=== PATIENT | male | born 1970 | race African-American/Black ===

== ENCOUNTER 2018-05-25 02:32 | Inpatient (IN) | payer MEDICAID, OTHER ==
[~2018-05-25] VITALS: Ht 188 cm; Wt 77.6 kg
[2018-05-25] MEDS ORDERED: MORPHINE SULFATE 4 MG/ML CPJ (NOT FOR IM USE) IV ONE (07:30)
[2018-05-25 09:14] LABS: BASOPHILS % 0.9 % (0.0-2.0); EOSINOPHILS % 4.4 % (0.0-5.0); HEMATOCRIT. 41.7 % (42.0-52.0); LYMPHOCYTES % 34.6 % (20.0-50.0); MEAN CORPUSCULAR HEMOGLOBIN 34.3 pg (28.0-32.0); MEAN CORPUSCULAR VOLUME 101.9 fL (80.0-94.0); MONOCYTES % 11.1 % (2.0-8.0); PLATELET 186 x1000/uL (130-400); RED BLOOD CELL COUNT 4.09 mill/uL (4.7-6.1); RED CELL DISTRIBUTION WIDTH 13.8 % (11.6-14.6)
[2018-05-25 09:17] LABS: CHLORIDE 109 mEq/L (98-107)
[2018-05-25] MEDS ORDERED: RIVAROXABAN 15 MG TABLET PO SCH (16:00)
[2018-05-25 20:33] VITALS: BP 126/86
[2018-05-25 20:40] VITALS: BP 126/86
[2018-05-25] MEDS ORDERED: ACETAMINOPHEN 325MG TABLET PO PRN (21:00)
[2018-05-25] MEDS ORDERED: LORAZEPAM 2MG/ML CPJ IV PRN (21:00)
[2018-05-25] MEDS ORDERED: CLONIDINE 0.1MG TABLET PO PRN (21:00)
[2018-05-25] MEDS: MORPHINE SULFATE 4 MG/ML CPJ (NOT FOR IM USE) IV PRN (23:03)
[2018-05-25 23:29] LABS: INR 1.1; PROTHROMBIN TIME 11.3 sec (9.1-11.1)
[2018-05-26 00:23] VITALS: BP 126/74
[2018-05-26 04:00] VITALS: BP 144/95
[2018-05-26] MEDS: ENOXAPARIN 80MG/0.8ML SYR SUBCUT SCH ×2 (06:28→17:17)
[2018-05-26 07:32] LABS: BASOPHILS % 1.2 % (0.0-2.0); EOSINOPHILS % 5.3 % (0.0-5.0); HEMATOCRIT. 44.9 % (42.0-52.0); HEMOGLOBIN. 15.2 g/dL (14.0-18.0); LYMPHOCYTES % 40.2 % (20.0-50.0); MEAN CORPUSCULAR HEMOGLOBIN 34.6 pg (28.0-32.0); MEAN CORPUSCULAR VOLUME 102.4 fL (80.0-94.0); MEAN PLATELET VOLUME 8.2 fl (7.4-10.4); MONOCYTES % 10.7 % (2.0-8.0); NEUTROPHILS % 42.6 % (40.0-76.0); PLATELET 197 x1000/uL (130-400); RED BLOOD CELL COUNT 4.39 mill/uL (4.7-6.1); RED CELL DISTRIBUTION WIDTH 13.4 % (11.6-14.6)
[2018-05-26] MEDS ORDERED: RIVAROXABAN 15 MG TABLET PO SCH ×2 (07:50→09:00)
[2018-05-26 08:13] LABS: CHLORIDE 106 mEq/L (98-107)
[2018-05-26 08:52] VITALS: BP 136/74
[2018-05-26] MEDS ORDERED: IOHEXOL-350 100 ML BOTTLE ONE (10:12)
[2018-05-26 12:20] VITALS: BP 129/80
[2018-05-26] MEDS: AMLODIPINE 2.5MG TABLET PO SCH ×2 (16:04→20:49)
[2018-05-26] MEDS: MORPHINE SULFATE 4 MG/ML CPJ (NOT FOR IM USE) IV PRN (16:13)
[2018-05-26 16:33] VITALS: BP 132/82
[2018-05-26 19:51] VITALS: BP 128/82
[2018-05-27] MEDS: ENOXAPARIN 80MG/0.8ML SYR SUBCUT SCH (05:48)
[2018-05-27 07:35] LABS: BASOPHILS % 0.9 % (0.0-2.0); EOSINOPHILS % 5.2 % (0.0-5.0); HEMATOCRIT. 46.4 % (42.0-52.0); HEMOGLOBIN. 15.5 g/dL (14.0-18.0); LYMPHOCYTES % 39.6 % (20.0-50.0); MEAN CORPUSCULAR HEMOGLOBIN 34.2 pg (28.0-32.0); MEAN CORPUSCULAR VOLUME 102.4 fL (80.0-94.0); MEAN PLATELET VOLUME 8.5 fl (7.4-10.4); MONOCYTES % 13.5 % (2.0-8.0); NEUTROPHILS % 40.8 % (40.0-76.0); PLATELET 216 x1000/uL (130-400); RED BLOOD CELL COUNT 4.53 mill/uL (4.7-6.1); RED CELL DISTRIBUTION WIDTH 13.7 % (11.6-14.6)
[2018-05-27 07:40] VITALS: BP 121/76
[2018-05-27] MEDS: AMLODIPINE 2.5MG TABLET PO SCH ×2 (08:19→08:25)
[2018-05-27] MEDS: MORPHINE SULFATE 4 MG/ML CPJ (NOT FOR IM USE) IV PRN (08:19)
[2018-05-27 08:38] LABS: CHLORIDE 106 mEq/L (98-107)
[2018-05-27 12:00] VITALS: BP 121/76
[2018-06-16] MEDS ORDERED: RIVAROXABAN 20 MG TABLET PO SCH (17:00)
== END 2018-05-27 13:10 | disposition home or self-care (01) | DRG 197 ==
LOC: ER 03:11 → EDSEX 03:11 → EDBD 03:11 → EDBEDREQ 09:36 → ENRESERV 17:31 → 6WST 18:30 → ER 18:30
PROVIDERS: ADMIT Internal Medicine; ATTEND Internal Medicine
DX: I82.512 Chronic embolism and thrombosis of left femoral vein (principal); E87.8 Other disorders of electrolyte and fluid balance, not elsewhere classified; I10 Essential (primary) hypertension; I82.532 Chronic embolism and thrombosis of left popliteal vein; T45.516A Underdosing of anticoagulants, initial encounter; Y92.89 Other specified places as the place of occurrence of the external cause; Z91.14 Patient's other noncompliance with medication regimen
CPT/HCPCS: 36415; 71045; 71275; 80048; 83735; 83880; 84484; 93005; 93306; 93971; J1650; J2270; Q9967

== ENCOUNTER 2018-05-30 23:01 | Emergency (ER) | payer MEDICAID ==
[~2018-05-30] VITALS: Ht 190.5 cm; Wt 89.0 kg
[2018-05-31 04:29] LABS: BASOPHILS % 1.9 % (0.0-2.0); EOSINOPHILS % 4.2 % (0.0-5.0); HEMATOCRIT. 38.3 % (42.0-52.0); LYMPHOCYTES % 31.2 % (20.0-50.0); MEAN CORPUSCULAR VOLUME 102.9 fL (80.0-94.0); MEAN PLATELET VOLUME 8.2 fl (7.4-10.4); MONOCYTES % 12.7 % (2.0-8.0); PLATELET 197 x1000/uL (130-400); RED BLOOD CELL COUNT 3.72 mill/uL (4.7-6.1); RED CELL DISTRIBUTION WIDTH 13.7 % (11.6-14.6)
[2018-05-31 04:36] LABS: CHLORIDE 108 mEq/L (98-107)
[2018-05-31 04:37] LABS: PARTIAL THROMBOPLASTIN TIME 23.1 sec (23.4-31.0); PROTHROMBIN TIME 10.1 sec (9.1-11.1)
[2018-05-31 06:19] VITALS: BP 116/80
== END 2018-05-31 06:45 | disposition home or self-care (01) ==
LOC: ER 23:01
DX: I82.403 Acute embolism and thrombosis of unspecified deep veins of lower extremity, bilateral (principal); F17.200 Nicotine dependence, unspecified, uncomplicated; Z86.718 Personal history of other venous thrombosis and embolism
CPT/HCPCS: 36415; 71045; 80053; 85025; 85610; 85730; 86850; 86900; 86901; 93005; 93970; 99284; 99406; Z7610

== ENCOUNTER 2018-06-04 03:23 | Emergency (ER) | payer MEDICAID ==
[~2018-06-04] VITALS: Ht 190.5 cm; Wt 89.0 kg
[2018-06-04] MEDS ORDERED: KETOROLAC 60MG/2ML VIAL IM ONE (08:00)
[2018-06-04 10:41] VITALS: BP 122/82
== END 2018-06-04 10:43 | disposition home or self-care (01) ==
LOC: ER 03:23
DX: I82.502 Chronic embolism and thrombosis of unspecified deep veins of left lower extremity (principal); F17.200 Nicotine dependence, unspecified, uncomplicated; Z98.890 Other specified postprocedural states; Z91.14 Patient's other noncompliance with medication regimen
CPT/HCPCS: 93971; 96372; 99284; J1885

== ENCOUNTER 2018-06-05 02:08 | Emergency (ER) | payer MEDICAID ==
[~2018-06-05] VITALS: Ht 190.5 cm; Wt 89.0 kg
[2018-06-05 05:55] LABS: BASOPHILS % 1.2 % (0.0-2.0); EOSINOPHILS % 4.7 % (0.0-5.0); HEMATOCRIT. 40.1 % (42.0-52.0); HEMOGLOBIN. 13.6 g/dL (14.0-18.0); LYMPHOCYTES % 28.7 % (20.0-50.0); MEAN CORPUSCULAR HEMOGLOBIN 34.8 pg (28.0-32.0); MEAN CORPUSCULAR VOLUME 102.6 fL (80.0-94.0); MONOCYTES % 11.6 % (2.0-8.0); NEUTROPHILS % 53.8 % (40.0-76.0); PLATELET 194 x1000/uL (130-400); RED BLOOD CELL COUNT 3.91 mill/uL (4.7-6.1); RED CELL DISTRIBUTION WIDTH 13.5 % (11.6-14.6)
[2018-06-05 06:00] LABS: CHLORIDE 109 mEq/L (98-107)
[2018-06-05 06:01] LABS: INR 1.1; PARTIAL THROMBOPLASTIN TIME 25.2 sec (23.4-31.0); PROTHROMBIN TIME 10.7 sec (9.1-11.1)
[2018-06-05 08:36] VITALS: BP 132/88
== END 2018-06-05 08:45 | disposition home or self-care (01) ==
LOC: ER 02:08
DX: R07.89 Other chest pain (principal); R73.03 Prediabetes; Z86.718 Personal history of other venous thrombosis and embolism
CPT/HCPCS: 36415; 71045; 83880; 84484; 93005; 99284

== ENCOUNTER 2018-06-11 23:32 | Emergency (ER) | payer MEDICAID ==
[~2018-06-11] VITALS: Ht 190.5 cm; Wt 89.5 kg
[2018-06-12 06:03] VITALS: BP 111/76
== END 2018-06-12 06:04 | disposition home or self-care (01) ==
LOC: ER 23:32
DX: M25.512 Pain in left shoulder (principal)
CPT/HCPCS: 73030; 99283

== ENCOUNTER 2018-07-09 23:10 | Inpatient (IN) | payer OTHER, MEDICAID ==
[~2018-07-09] VITALS: Ht 190.5 cm; Wt 78.9 kg
[2018-07-10 05:36] LABS: BASOPHILS % 0.8 % (0.0-2.0); EOSINOPHILS % 4.7 % (0.0-5.0); HEMATOCRIT. 42.1 % (42.0-52.0); HEMOGLOBIN. 14.2 g/dL (14.0-18.0); LYMPHOCYTES % 29.9 % (20.0-50.0); MEAN CORPUSCULAR HEMOGLOBIN 34.6 pg (28.0-32.0); MEAN CORPUSCULAR VOLUME 102.4 fL (80.0-94.0); MEAN PLATELET VOLUME 8.1 fl (7.4-10.4); MONOCYTES % 10.9 % (2.0-8.0); NEUTROPHILS % 53.7 % (40.0-76.0); PLATELET 172 x1000/uL (130-400); RED BLOOD CELL COUNT 4.11 mill/uL (4.7-6.1); RED CELL DISTRIBUTION WIDTH 13.3 % (11.6-14.6)
[2018-07-10 05:37] LABS: CHLORIDE 108 mEq/L (98-107)
[2018-07-10 05:41] LABS: PARTIAL THROMBOPLASTIN TIME 26.2 sec (23.4-31.0); PROTHROMBIN TIME 10.2 sec (9.6-11.0)
[2018-07-10] MEDS ORDERED: ENOXAPARIN 100MG/ML SYR SUBCUT ONE (07:15)
[2018-07-10] MEDS ORDERED: ACETAMINOPHEN 325MG TABLET PO PRN (10:30)
[2018-07-10] MEDS ORDERED: HYDROCODONE/ACETAMINOPHEN 10/325MG TABLET PO PRN (10:30)
[2018-07-10] MEDS ORDERED: LORAZEPAM 2MG/ML CPJ IV PRN (10:30)
[2018-07-10] MEDS ORDERED: CLONIDINE 0.1MG TABLET PO PRN (10:30)
[2018-07-10] MEDS ORDERED: DOCUSATE SODIUM 100MG CAPSULE PO PRN (10:30)
[2018-07-10] MEDS ORDERED: GUAIFENESIN 200MG/10ML SUGAR FREE UDC PO PRN (10:30)
[2018-07-10] MEDS ORDERED: NA PHOS,M-B/NA PHOS,DI-BA ENEMA 118ML PR PRN (10:30)
[2018-07-10] MEDS ORDERED: MAGNESIUM/ALUMINUM HYDROXIDE/SIMETHICONE 30ML UDC PO PRN (10:30)
[2018-07-10] MEDS ORDERED: IPRATROPIUM/ALBUTEROL 0.5-3(2.5)MG/3ML NEB INH PRN (10:30)
[2018-07-10] MEDS ORDERED: ONDANSETRON HCL 4MG/2ML INJ IV PRN (10:30)
[2018-07-10 11:24] VITALS: BP 127/85
[2018-07-10 13:18] LABS: CHLORIDE 109 mEq/L (98-107)
[2018-07-10] MEDS: MORPHINE SULFATE 4 MG/ML CPJ (NOT FOR IM USE) IV PRN (19:51)
[2018-07-10 20:00] VITALS: BP 135/84
[2018-07-11] VITALS: BP 123/88
[2018-07-11 04:00] VITALS: BP 126/88
[2018-07-11 06:30] VITALS: BP 120/65
[2018-07-11] MEDS: MORPHINE SULFATE 4 MG/ML CPJ (NOT FOR IM USE) IV PRN (06:30)
[2018-07-11 06:57] LABS: CHLORIDE 106 mEq/L (98-107)
[2018-07-11 07:10] LABS: HDL CHOLESTEROL 69 mg/dL (40-59)
[2018-07-11 07:12] LABS: LDL CHOLESTEROL 85 mg/dL (5-100)
[2018-07-11 07:14] LABS: BASOPHILS % 1.3 % (0.0-2.0); EOSINOPHILS % 5.8 % (0.0-5.0); HEMATOCRIT. 44.4 % (42.0-52.0); HEMOGLOBIN. 15.1 g/dL (14.0-18.0); LYMPHOCYTES % 42.5 % (20.0-50.0); MEAN CORPUSCULAR HEMOGLOBIN 34.6 pg (28.0-32.0); MEAN CORPUSCULAR VOLUME 101.6 fL (80.0-94.0); MEAN PLATELET VOLUME 8.4 fl (7.4-10.4); MONOCYTES % 12.1 % (2.0-8.0); NEUTROPHILS % 38.3 % (40.0-76.0); PLATELET 172 x1000/uL (130-400); RED BLOOD CELL COUNT 4.37 mill/uL (4.7-6.1); RED CELL DISTRIBUTION WIDTH 13.7 % (11.6-14.6); T4 FREE 1.03 ng/dL (0.76-1.46)
== END 2018-07-11 09:30 | disposition home or self-care (01) | DRG 351 ==
LOC: ER 23:10 → 5WST 07-10 08:02 → EDBEDREQ 07-10 08:27 → ENRESERV 07-10 09:58
PROVIDERS: ADMIT Internal Medicine; ATTEND Internal Medicine
DX: M79.605 Pain in left leg (principal); I82.512 Chronic embolism and thrombosis of left femoral vein; E11.9 Type 2 diabetes mellitus without complications; I10 Essential (primary) hypertension; F17.200 Nicotine dependence, unspecified, uncomplicated
CPT/HCPCS: 36415; 71045; 80048; 80061; 82962; 83880; 84439; 84443; 84484; 93005; 93971; 96374; 99285; J1650; J2270

== ENCOUNTER 2018-07-11 21:42 | Emergency (ER) | payer MEDICAID ==
[~2018-07-11] VITALS: Ht 190.5 cm; Wt 85.0 kg
[2018-07-12] MEDS ORDERED: MORPHINE SULFATE 4 MG/ML CPJ (NOT FOR IM USE) IV STA (01:22)
[2018-07-12] MEDS ORDERED: ONDANSETRON HCL 4MG/2ML INJ IV STA (01:22)
[2018-07-12 04:37] VITALS: BP 129/76
== END 2018-07-12 05:03 | disposition home or self-care (01) ==
LOC: ER 21:42
DX: I82.5Z2 Chronic embolism and thrombosis of unspecified deep veins of left distal lower extremity (principal); E11.9 Type 2 diabetes mellitus without complications; I10 Essential (primary) hypertension; F17.200 Nicotine dependence, unspecified, uncomplicated; Z98.890 Other specified postprocedural states
CPT/HCPCS: 96374; 96375; 99283; J2270; J2405; Z7610

== ENCOUNTER 2018-07-12 06:56 | Emergency (ER) | payer MEDICAID ==
[~2018-07-12] VITALS: Ht 193 cm; Wt 88.0 kg
[2018-07-12] MEDS ORDERED: HYDROCODONE/ACETAMINOPHEN 5/325MG TABLET PO ONE (07:45)
[2018-07-12 07:47] VITALS: BP 114/56
[2018-07-12 08:12] LABS: HEMATOCRIT. 48.7 % (42.0-52.0); HEMOGLOBIN. 16.4 g/dL (14.0-18.0); MEAN CORPUSCULAR HEMOGLOBIN 34.4 pg (28.0-32.0); MEAN CORPUSCULAR VOLUME 102.2 fL (80.0-94.0); MEAN PLATELET VOLUME 7.8 fl (7.4-10.4); PLATELET 189 x1000/uL (130-400); RED BLOOD CELL COUNT 4.76 mill/uL (4.7-6.1); RED CELL DISTRIBUTION WIDTH 13.3 % (11.6-14.6)
[2018-07-12 08:19] LABS: CHLORIDE 107 mEq/L (98-107)
[2018-07-12 08:21] LABS: PARTIAL THROMBOPLASTIN TIME 25.9 sec (23.4-31.0)
[2018-07-12 08:41] LABS: PLATELET ESTIMATE NORMAL
== END 2018-07-12 08:54 | disposition home or self-care (01) ==
LOC: ER 06:56
DX: I82.5Z2 Chronic embolism and thrombosis of unspecified deep veins of left distal lower extremity (principal); E11.9 Type 2 diabetes mellitus without complications; I10 Essential (primary) hypertension; F17.200 Nicotine dependence, unspecified, uncomplicated; Z98.890 Other specified postprocedural states
CPT/HCPCS: 36415; 80048; 93971; 99284